=== PATIENT | female | born 1995 | race Caucasian/White ===

== ENCOUNTER 2017-10-27 19:17 | Observation (INO) | payer SELFPAY ==
[~2017-10-27] VITALS: Ht 154.9 cm; Wt 77.1 kg
[2017-10-27] MEDS ORDERED: PNV1TABL76 PO (20:10)
[2017-10-27] MEDS ORDERED: FOLI-43 PO (20:10)
[2017-10-27] MEDS ORDERED: FERR325T6 PO (20:10)
== END 2017-10-27 20:00 | disposition home or self-care (01) ==
LOC: L&D 19:17
PROVIDERS: ADMIT Obstetrics & Gynecology; ATTEND Obstetrics & Gynecology
DX: O26.893 Other specified pregnancy related conditions, third trimester (principal); R10.30 Lower abdominal pain, unspecified; Z3A.39 39 weeks gestation of pregnancy
CPT/HCPCS: 76815; 76818; 99281; G0378